=== PATIENT | male | born 1995 | race Caucasian/White ===

== ENCOUNTER 2017-07-07 10:04 | Inpatient (IN) | payer BC, OTHER ==
[~2017-07-07] VITALS: Ht 177.8 cm; Wt 75.3 kg
[2017-07-07 12:00] VITALS: BP 119/66
--- NOTE | 2017-07-07 12:00 | NUR ---
Admission Note VS: BP: 119/66 HR: 88, SpO2: 99% RA, RR: 14, Temp: 97.8 Pain: 4/10 Body aches Height:5'10" Weight: 166LB Allergies: NKA Pt is a 22 y/o male admitted to [facility] on 07/07/17 at 1150. Pt has been admitted for Heroin, Meth and Xanax dependence under the care of Dr. Arnold. Pt denies suicidal and homicidal ideations at this time. Pt denies Chest Pain and SOB. Pt did not bring any medications with him , PT reports taking lexapro 20mg. PT reports living on his own at this time. Upon assessment pt's skin integrity is intact. CIWA 5, COWS 6 upon admission for mild nausea, mild anxiety and 4/10 body aches. A/Ox4 and able to answer questions necessary for the admission process. Pt reports relapsing 2 weeks ago.. Pt is Full Code. VS WNL, Regular Diet. Pt reports family hx of substance abuse by both parents. Pt's mother has a history of benzo and alcohol abuse and father has hx of meth and heroin abuse.. Pt reports Hx of seizures, last seizures happened 3 months ago. Pt denies any history of suicide attempts. Breathing is even and unlabored, SpO2 is 99% on RA. Pt ambulates with steady gait. Pt reports BM every one to two days. LBM on 07/04/17. Pt reports smoking a pack of cigarettes daily. Pt denies having a PCP. 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 Dr. Arnold has been notified, pt has not been placed on a taper at this time and his symptoms will be managed by PRN medications. Pt . All needs have been met. Pt has been oriented to the room and the unit. All safety measures in place per hospital policy. Bed in lowest position, side rails up x2 and padded, call-light within reach. Will continue to monitor. Substance Abuse: Xanax: 6mg orally daily for 2 weeks. Last use: 07/06/17 6mg at 2200 Meth: smokes 1/4g daily for 2 weeks. Last use: 07/05/17 1/4g at night Heroin: 2g IV daily for 2 weeks. Last use: 07/06/17 2g at 2200
[2017-07-07 14:13] LABS: *AMPHETAMINE, URINE NEGATIVE (NEGATIVE); *BARBITURATE, URINE POSITIVE (NEGATIVE); *CANNABINOID, URINE POSITIVE (NEGATIVE); *COCCAINE, URINE NEGATIVE (NEGATIVE); *OPIATE, URINE POSITIVE (NEGATIVE); *PHENCYCLIDINE SCREEN,URINE NEGATIVE (NEGATIVE)
[2017-07-07] MEDS ORDERED: LORAZEPAM 2 MG/1 ML VIAL IM PRN (14:15)
[2017-07-07] MEDS ORDERED: MAG HYDROX/AL HYDROX/SIMETH 30 ML LIQUID UDC PO PRN (14:15)
[2017-07-07] MEDS ORDERED: LOPERAMIDE HCL 2 MG CAPSULE PO PRN ×2 (14:15)
[2017-07-07] MEDS ORDERED: BUPRENORPHINE HCL 2 MG TAB.SUBL SL PRN (14:15)
[2017-07-07] MEDS ORDERED: MIRALAX 17 GM POWD.PACK PO PRN (14:15)
[2017-07-07] MEDS ORDERED: DICYCLOMINE HCL 20 MG TABLET PO PRN (14:15)
[2017-07-07] MEDS ORDERED: IBUPROFEN 600 MG TABLET PO PRN (14:15)
[2017-07-07] MEDS ORDERED: LORAZEPAM 1 MG TABLET PO PRN ×2 (14:15)
[2017-07-07] MEDS ORDERED: ONDANSETRON 4 MG/2 ML VIAL IM PRN (14:15)
[2017-07-07] MEDS: LORAZEPAM 1 MG TABLET PO SCH ×3 (14:30→22:11)
[2017-07-07] MEDS: BUPRENORPHINE HCL 2 MG TAB.SUBL SL SCH ×3 (14:30→22:12)
[2017-07-07 16:00] VITALS: BP 114/64
--- NOTE | 2017-07-07 18:56 | NUR ---
End of Shift Endorsement given to nightshift nurse. Pt has been placed on a 5 day Ativan and 5 day Subutex taper. Both tapers have been initiated at 1700. PT has not received any PRN medications at this time. Pt severely withdrawing AEB COWS 14, CIWA 11, Dr. Arnold is aware. Intake: 796ml, Void x2, BM x0. Pt is a 22 y/o male admitted to [facility] on 07/07/17 at 1150. Pt has been admitted for Heroin, Meth and Xanax dependence under the care of Dr. Arnold. Pt denies suicidal and homicidal ideations at this time. Pt denies Chest Pain and SOB. Pt did not bring any medications with him , PT reports taking lexapro 20mg. PT reports living on his own at this time. Upon assessment pt's skin integrity is intact. CIWA 5, COWS 6 upon admission for mild nausea, mild anxiety and 4/10 body aches. A/Ox4 and able to answer questions necessary for the admission process. Pt reports relapsing 2 weeks ago.. Pt is Full Code. VS WNL, Regular Diet. Pt reports family hx of substance abuse by both parents. Pt's mother has a history of benzo and alcohol abuse and father has hx of meth and heroin abuse.. Pt reports Hx of seizures, last seizures happened 3 months ago. Pt denies any history of suicide attempts. Breathing is even and unlabored, SpO2 is 99% on RA. Pt ambulates with steady gait. Pt reports BM every one to two days. LBM on 07/04/17. Pt reports smoking a pack of cigarettes daily. Pt denies having a PCP. 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 Dr. Arnold has been notified, pt has not been placed on a taper at this time and his symptoms will be managed by PRN medications. Pt . All needs have been met. Pt has been oriented to the room and the unit. All safety measures in place per hospital policy. Bed in lowest position, side rails up x2 and padded, call-light within reach. Will continue to monitor. Substance Abuse: Xanax: 6mg orally daily for 2 weeks. Last use: 07/06/17 6mg at 2200 Meth: smokes 1/4g daily for 2 weeks. Last use: 07/05/17 1/4g at night Heroin: 2g IV daily for 2 weeks. Last use: 07/06/17 2g at 2200
[2017-07-07] MEDS ORDERED: BUPRENORPHINE HCL 2 MG TAB.SUBL SL ONE (19:00)
[2017-07-07] MEDS ORDERED: LORAZEPAM 1 MG TABLET PO ONE (19:00)
--- NOTE | 2017-07-07 19:20 | NUR ---
Start of Shift Notes Received a 22 y/o male admitted on 07/07/17 Heroin, Meth and Xanax dependence. Px is Full Code, Regular Diet. Px reports Hx of seizures, last seizures happened 3 months ago. Px denies any history of suicide attempts. During the rounds at 1920, px complained of body aches 6/10, nausea without emesis, and reported anxiety on moderate side. All safety measures in place per hospital policy. Bed in lowest position, side rails up x2 and padded, call-light within reach. We'll continue to monitor.
[2017-07-07] MEDS: ONDANSETRON ODT 4 MG TAB.RAPDIS SL PRN (19:45)
--- NOTE | 2017-07-07 19:45 | NUR ---
PRN Zofran Px complained of nausea without emesis, Zofran 4 mg/tab, 1 tab given SL as PRN med. We'll continue to monitor.
[2017-07-07 20:00] VITALS: BP 116/64
--- NOTE | 2017-07-07 20:15 | NUR ---
Reassessment of nausea Px verbalized that his nausea is gone. Zofran is effective. We'll continue to monitor.
[2017-07-07] MEDS: METHOCARBAMOL 750 MG TABLET PO PRN (22:10)
[2017-07-07] MEDS: GABAPENTIN 300 MG CAPSULE PO SCH (22:11)
[2017-07-07] MEDS: CLONIDINE HCL 0.1 MG TABLET PO PRN (22:11)
--- NOTE | 2017-07-07 22:11 | NUR ---
PRN Robaxin and Clonidine Px complained of generalized pain of 6/10 and moderate anxiety. Robaxin 750 mg/tab, 1 tab and Clonidine 0.1mg/tab, 1 tab given PO as PRN meds. We'll continue to monitor.
--- NOTE | 2017-07-07 23:11 | NUR ---
Reassessment of pain Px verbalized that the body aches decreased to 4/10 but the anxiety is still there. We'll continue to monitor.
[2017-07-08] VITALS: BP 100/60
[2017-07-08 04:00] VITALS: BP 92/57
--- NOTE | 2017-07-08 04:00 | NUR ---
COWS and CIWA deferred COWS and CIWA deferred due to the px is sleeping, to assess if the px is awake per doctor's order. Respirations are even and unlabored. We'll continue to monitor.
--- NOTE | 2017-07-08 07:17 | NUR ---
End of Shift Notes 22 y/o male admitted on 07/07/17 Heroin, Meth and Xanax dependence. Px is Full Code, Regular Diet. Px reports Hx of seizures, last seizures happened 3 months ago. Px denies any history of suicide attempts. During the shift, px complained of body aches 6/10, nausea without emesis, and reported anxiety on moderate side. Zofran 4 mg/tab, 1 tab given SL, Robaxin 750 mg/tab, 1 tab and Clonidine 0.1mg/tab, 1 tab given PO as PRN meds. Oral intake of 1,400 ml, voided x2, no BM. Slept for 4 hrs. All safety measures in place per hospital policy. Bed in lowest position, side rails up x2 and padded, call-light within reach. We'll continue to monitor.
--- NOTE | 2017-07-08 07:30 | NUR ---
START OF SHIFT Pt is a 22 y/o male admitted on 07/07/17 for benzo, opiate, and meth dependence. Pt is full code, NKA, regular diet, and fall/seizure precautions. Pt reports hx of withdrawal related seizures. Pt reports PMH of anxiety and depression. Pt started a 5 day Ativan and 5 day Subutex taper on 07/07/17, tolerating well. Pt was administered PRN Clonidine, Zofran, and Robaxin during security shift manager. Pt slept 4 hours. Last COW 5 CIWA 6 during security shift manager. Upon assessment pt presents with anxiety, intermittent nausea, body aches 3/10, sweats, runny nose, and chills. Respirations 16, even and unlabored. Denies V/D. Denies chest pain or SOB. Medications due. Safety measures in place. Call light within reach. Will continue to monitor.
[2017-07-08 08:00] VITALS: BP_SYST 84; BP_SYST 94; BP_DIAS 44; BP_DIAS 64
[2017-07-08] MEDS: BUPRENORPHINE HCL 2 MG TAB.SUBL SL SCH ×3 (08:35→20:34)
[2017-07-08] MEDS: GABAPENTIN 300 MG CAPSULE PO SCH (08:35)
[2017-07-08] MEDS: ESCITALOPRAM OXALATE 10 MG TABLET PO SCH (08:36)
[2017-07-08] MEDS: METHOCARBAMOL 750 MG TABLET PO PRN ×2 (08:36→15:08)
[2017-07-08] MEDS: ONDANSETRON ODT 4 MG TAB.RAPDIS SL PRN ×2 (08:36→15:07)
[2017-07-08] MEDS: LORAZEPAM 1 MG TABLET PO SCH ×3 (08:36→20:33)
--- NOTE | 2017-07-08 08:36 | NUR ---
PRN ZOFRAN AND ROBAXIN ADMINISTRATION Pt reports nausea and complains of body aches 11/22. Safety measures in place. Call light within reach. Will continue to monitor.
[2017-07-08] MEDS ORDERED: TUBERCULIN,PURIF.PROT.DERIV. 5 TU/0.1 ML TEST ID ONE (09:00)
--- NOTE | 2017-07-08 09:06 | NUR ---
PRN LEONCIO REASSESSMENT Pt reports that nausea improved. No episodes of vomiting. Safety measures in place. Call light within reach. Will continue to monitor.
--- NOTE | 2017-07-08 09:36 | NUR ---
CAMELIA ORDONEZ REASSESSMENT Pt is laying in bed "taking a nap." Pt reports that body aches ceased . Safety measures in place. Call light within reach. Will continue to monitor.
[2017-07-08 12:00] VITALS: BP 127/73
--- NOTE | 2017-07-08 12:00 | NUR ---
CIWA/COW deferred Pt is laying in bed with eyes closed, to be assessed when pt is fully awake per orders. Respirations 16, even and unlabored. Safety measures in place. Call light within reach. Will continue to monitor.
[2017-07-08] MEDS ORDERED: GABA600T2 PO (13:37)
[2017-07-08] MEDS ORDERED: ESCI20TA PO (13:37)
[2017-07-08] MEDS ORDERED: QUET100T PO (13:37)
[2017-07-08] MEDS: CLONIDINE HCL 0.1 MG TABLET PO PRN (15:07)
--- NOTE | 2017-07-08 15:07 | NUR ---
PRN CLONIDINE, ZOFRAN, AND ROBAXIN ADMINISTRATION Pt presents with anxiety, irritability, sweats, and chills Pt also complains of nausea and body aches 12/23. BP 127/67. Safety measures in place. Call light within reach. Will continue to monitor.
--- NOTE | 2017-07-08 15:37 | NUR ---
PRN ZOFRAN REASSESSMENT Pt reports improvement in nausea, reports it is intermittent. Safety measures in place. Call light within reach. Will continue to monitor.
[2017-07-08 16:00] VITALS: BP 98/45
--- NOTE | 2017-07-08 16:07 | NUR ---
PRN CLONIDINE AND ROBAXIN REASSESSMENT Pt verbalizes improvement in chills, sweats, anxiety, and irritability. Body aches improved, 2/10. Safety measures in place. Call light within reach. Will continue to monitor.
--- NOTE | 2017-07-08 19:24 | NUR ---
END OF SHIFT Pt is a 22 y/o male admitted on 07/07/17 for benzo, opiate, and meth dependence. Pt is full code, NKA, regular diet, and fall/seizure precautions. Pt reports hx of withdrawal related seizures. Pt reports PMH of anxiety and depression. Pt started a 5 day Ativan and 5 day Subutex taper on 07/07/17, tolerating well. Pt presented with anxiety, irritability, intermittent nausea, body aches 3/10, sweats, runny nose, and chills. Scheduled medications and PRN Zofran x 2, Robaxin x 2 ([id number] and [id number]) and Clonidine, effective in S/S of withdrawal AEB COW 5 CIWA 5 lowered to COW 5 CIWA 4 during shift and pt verbalized overall improvement in S/S. Pt ate all his meals. Pt participated did not participate in most groups/activities. Intake 2175 ml, void x 3, stool x 0. Safety measures in place. Call light within reach. Pts needs have been met. Endorsed to night warehouse manager nurse.
[2017-07-08 20:00] VITALS: BP 137/65
--- NOTE | 2017-07-08 20:00 | NUR ---
START OF SHIFT NOTE RECEIVED REPORT FROM DAY SHIFT NURSE. PATIENT IS A 22 YEAR OLD MALE ADMITTED FOR BENZO/OPIATE DEPENDENCE. PATIENT IS ON 2ND DAY OF HIS 5 DAY SUBUTEX. PATIENT REPORTS PMH OF ANXIETY , DEPRESSION AND SEIZURE R/T W/D. SKIN INTACT. PATIENT WAS GIVEN PRN ROBAXIN X 2, ZOFRAN X 2 AND CLONIDINE. LAST COWS 6 AND CIWA 4. RECEIVED PATIENT ALERT AND ORIENTED X 4. RESPIRATION EVEN AND UNLABORED. PATIENT REPORTS ANXIETY, HOT AND COLD SWEATS, INTERMITTENT NAUSEA BUT NOT AT THIS TIME, BODY ACHES 3/10 AND NOTED WITH FINE TREMORS. ON FALL/SEIZURE PRECAUTION. SAFETY MEASURES IN PLACE. CALL LIGHT IN REACH. WILL CONTINUE TO MONITOR.
[2017-07-08] MEDS: QUETIAPINE FUMARATE 100 MG TABLET PO SCH (20:34)
[2017-07-08] MEDS ORDERED: GABAPENTIN 300 MG CAPSULE PO SCH (21:00)
[2017-07-08 22:32] LABS: BASOPHILS # (AUTO) 0.1 K/uL (0.0-8.0); BASOPHILS % (AUTO) 0.9 % (0.0-2.0); EOSINOPHILS # (AUTO) 0.2 K/uL (0.0-0.7); EOSINOPHILS % (AUTO) 3.7 % (0.0-7.0); HEMOGLOBIN 12.4 G/DL (14.0-18.0); LYMPHOCYTES % (AUTO) 44.5 % (20.5-51.5); MEAN CORPUSCULAR HEMOGLOBIN 31.3 UUG (27.0-31.0); MEAN CORPUSCULAR HGB CONC 34 g/dL (32.0-37.0); MEAN CORPUSCULAR VOLUME 91.1 FL (82.0-92.0); MONOCYTES # (AUTO) 0.7 K/UL (0.1-1.30); MONOCYTES % (AUTO) 10.9 % (0.0-11.0); NEUTROPHILS # (AUTO) 2.7 K/UL (1.8-8.9); PLATELET COUNT (AUTO) 253 K/UL (150-450); RED BLOOD CELL COUNT(AUTO) 3.95 MIL/UL (4.7-6.1); WHITE BLOOD COUNT (AUTO) 6.7 K/UL (4.0-11.2)
[2017-07-08 22:47] LABS: ALANINE AMINOTRANSFERASE 60 U/L (16-63); ALKALINE PHOSPHATASE 83 U/L (50-136); ASPARTATE AMINOTRANSFERASE 26 U/L (15-37); BILIRUBIN,TOTAL 0.2 mg/dL (0.2-1.0); CARBON DIOXIDE 30 mmol/L (21-32); CHLORIDE 103 mmol/L (98-107); CREATININE 0.8 mg/dL (0.6-1.3); GLUCOSE 122 mg/dL (74-106); POTASSIUM 3.8 mmol/L (3.5-5.1); TOTAL PROTEIN, SERUM 6.7 g/dL (6.4-8.2); UREA NITROGEN, BLOOD 10 mg/dL (7-18)
[2017-07-08 22:57] LABS: ETHANOL < 3 MG/DL (0-0)
[2017-07-09] VITALS: BP 115/72
--- NOTE | 2017-07-09 | NUR ---
COWS AND CIWA DEFERRED PATIENT SLEEPING COMFORTABLY. RESPIRATION EVEN AND UNLABORED. SAFETY MEASURES IN PLACE. CALL LIGHT IN REACH. WILL CONTINUE TO MONITOR.
--- NOTE | 2017-07-09 | NUR ---
BLAYNE DEFERRED PATIENT SLEEPING. REFUSED TO WOKEN UP FOR VS. RESPIRATION EVEN AND UNLABORED. SAFETY MEASURES IN PLACE. CALL LIGHT IN REACH. WILL CONTINUE TO MONITOR Addendum: 07/09/17 at 0701 by ARMANDO LR LVN ERROR: THIS CHARTING IS FOR ANOTHER PATIENT
[2017-07-09 04:00] VITALS: BP 99/55
--- NOTE | 2017-07-09 04:00 | NUR ---
COWS AND CIWA DEFERRED PATIENT SLEEPING COMFORTABLY. RESPIRATION EVEN AND UNLABORED. SAFETY MEASURES IN PLACE. CALL LIGHT IN REACH. WILL CONTINUE TO MONITOR.
--- NOTE | 2017-07-09 07:22 | NUR ---
END OF SHIFT PATIENT COMPLIANT WITH MEDICATION AND TREATMENT PLAN. PATIENT DID NOT REQUIRE ANY PRN MEDICATION . PATIENT SLEPT 7 HOURS. FLUID INTAKE 1,047 ML . VOIDED X 2 AND BM X 1. LAST COWS 9 AND CIWA 6. PATIENT STATES MEDICATIONS ARE EFFECTIVE IN CONTROLLING HIS WITHDRAWAL SYMPTOMS. PATIENT EATING AND DRINKING WELL. ON FALL/SEIZURE PRECAUTION. SAFETY MEASURES IN PLACE. CALL LIGHT IN REACH. WILL CONTINUE TO MONITOR
[2017-07-09 08:00] VITALS: BP 101/60
--- NOTE | 2017-07-09 08:15 | NUR ---
START OF SHIFT: RECEIVED PT A/O X 4. HE PRESENTS WITH BLUNTED AFFECT AND DEPRESSED MOOD. HE REPORTS BODY ACHES,NIGHT SWEATS,CHILLS ANXIETY AND RESTLESSNESS. COWS 6 CIWA 3. ENCOURAGED INCREASED FLUIDS TO ASSIST IN FACILITATING DETOX PROCESS. ENCOURAGED GROUP ATTENDANCE TO IMPROVE COPING SKILLS AND PREVENT RELAPSE. WILL CONTINUE TO MONITOR AND OFFER SUPPORT.
[2017-07-09] MEDS: ESCITALOPRAM OXALATE 10 MG TABLET PO SCH (08:33)
[2017-07-09] MEDS: LORAZEPAM 1 MG TABLET PO SCH ×3 (08:34→20:20)
[2017-07-09] MEDS ORDERED: GABAPENTIN 300 MG CAPSULE PO SCH (09:00)
[2017-07-09] MEDS ORDERED: BUPRENORPHINE HCL 2 MG TAB.SUBL SL SCH (09:00)
--- NOTE | 2017-07-09 10:36 | NUR ---
Therapist prompted client about group times. Client stated he will try to attend the afternoon group so he can rest longer.
[2017-07-09] MEDS: METHOCARBAMOL 750 MG TABLET PO PRN ×2 (11:44→20:21)
[2017-07-09] MEDS: HYDROXYZINE PAMOATE 25 MG CAPSULE PO PRN ×2 (11:45→18:07)
[2017-07-09] MEDS: CLONIDINE HCL 0.1 MG TABLET PO PRN (11:45)
--- NOTE | 2017-07-09 11:50 | NUR ---
PRN VISTARIL,CLONIDINE AND ROBAXIN GIVEN FOR REPORTED ANXIETY,CHILLS AND MUSCLE ACHES.
[2017-07-09 12:00] VITALS: BP 121/79
--- NOTE | 2017-07-09 12:50 | NUR ---
PT REPORTS PRN MEDS WERE EFFECTIVE. WILL CONTINUE TO MONITOR.
[2017-07-09] MEDS: GABAPENTIN 400 MG CAPSULE PO SCH ×2 (14:54→20:20)
[2017-07-09] MEDS: BUPRENORPHINE HCL 2 MG TAB.SUBL SL SCH ×2 (14:54→20:21)
[2017-07-09 16:00] VITALS: BP 110/66
--- NOTE | 2017-07-09 19:08 | NUR ---
END OF SHIFT: PT CONTINUES ON SUBUTEX/ATIVAN TAPER. LAST COWS 4 CIWA 2. PRN VISTARIL,CLONIDINE AND ROBAXIN GIVEN TO ASSIST IN MANAGING S/S OF W/D. PT STATES THEY WERE EFFECTIVE. HE ISOLATED IN ROOM AND STAYED IN BED MOST OF DAY AND REFUSED TO GO TO GROUPS. HE STATES HE WILL GO TOMORROW WHEN HE FEELS BETTER.. WILL PASS SHIFT REPORT TO ONCOMING [facility] NURSE.
[2017-07-09 20:00] VITALS: BP 132/73
--- NOTE | 2017-07-09 20:00 | NUR ---
Start of Shift Note: Report received from day shift nurse. Pt is a 22M admitted on 07/07/2017 for medically-supervised withdrawal from benzodiazepines, opiates, and amphetamines. Pt reports using Xanax 6mg, heroin IV 2g, and 0.25g methamphetamine daily for two weeks. Pt continues on Ativan and Subutex tapers. Pt received with last COWS=4/CIWA=2, and PRN's Vistaril x2, Catapres, and Robaxin were given during day shift. Pt reports NKDA/NKFA. Pt is a full code. Pt is on a regular diet. PMHx: anxiety, depression. Pt received in room and reports anxiety, tremor, and chills; pt noted to be diaphoretic with 5mm pupils. Bed is in low position and locked, side rails up x2, call light within reach. Will continue to monitor.
[2017-07-09] MEDS: QUETIAPINE FUMARATE 100 MG TABLET PO SCH (20:20)
[2017-07-09] MEDS: CLONIDINE HCL 0.1 MG TABLET PO SCH (20:21)
--- NOTE | 2017-07-09 20:21 | NUR ---
PRN Robaxin: Patient complains of myalgia in bilateral legs. Administered PRN Robaxin as ordered. Will reassess in one hour.
--- NOTE | 2017-07-09 21:25 | NUR ---
PRN Robaxin Reassessment: Patient denies myalgia at this time. PRN Robaxin effective. Will continue to monitor.
[2017-07-10] VITALS: BP 104/57
--- NOTE | 2017-07-10 | NUR ---
COWS/CIWA Deferred: Ordered 00:00 COWS and CIWA assessments are deferred for sleep. VSS. All safety precautions are in place. Will continue to monitor. Addendum: 07/10/17 at 0131 by GARCIA DAVALOS RN Amended: Links added.
[2017-07-10 04:00] VITALS: BP 92/51
--- NOTE | 2017-07-10 04:00 | NUR ---
COWS and CIWA Deferred: COWS and CIWA are deferred for sleep. VSS. All safety precautions are in place. Will continue to monitor. Addendum: 07/10/17 at 0427 by GARCIA DAVALOS RN Amended: Links added.
[2017-07-10 07:07] LABS: HEPATITIS B SURFACE AG Negative (Negative)
--- NOTE | 2017-07-10 07:10 | NUR ---
End of Shift Note: Pt is a 22 y/o male admitted to [facility] on 07/07/2017 for medically-supervised withdrawal from benzodiazepines, opiates, and amphetamines. Pt reported a PMHx of anxiety and depression. Pt reports NKDA/NKFA, is a full code, and is on a regular diet. Pt reported using 6mg Xanax, 2g IV heroin, and 0.25g methamphetamine daily for two weeks, and was placed on Ativan and Subutex tapers. Scheduled medication regime effectively managed s/s of withdrawal this shift, in addition to PRN Robaxin for myalgia. Last COWS=9/CIWA=7 at 20:00 before taper medications were administered. V/S stable throughout shift. Total fluid intake this shift: 800 ml; output: urine x 4 and BM x 1. Pt is currently in bed and slept 7 hours this shift. All needs have been attended and met. Pt endorsed to day shift nurse.
--- NOTE | 2017-07-10 07:50 | NUR ---
START OF SHIFT Rcvd endorsement from ongoing nurse, client is in bed, he is a/o x 4, he presents with anxious mood, flat affect, fine tremors, and clammy skin. He reports chills, body aches, abdominal cramps, and decreased appetite. Encouraged client to attend group therapy for skills to maintain sober. Encouraged client to increase PO fluid as tolerated to facilitate detox. Client is a 22 y/o male, admitted to [facility] for withdrawal from alprazolam and heroin. Client is on 5 day Ativan/Subutex taper (day 4), tolerating well . Last CIWA 7/COWS 9 @ 1999. PRN Robaxin 750mg PO for muscle pain, noted effective. Client slept 7 hrs. He reports hx of withdrawal-induced seizures, Client reports of NKA, he is full code, Regular diet. Client side rails x 2 up/padded for seizure precautions. Call light within reach.
[2017-07-10 08:55] VITALS: BP 110/71
[2017-07-10] MEDS ORDERED: BACLOFEN 10 MG TABLET PO SCH (09:00)
[2017-07-10] MEDS ORDERED: LORAZEPAM 1 MG TABLET PO SCH (09:00)
[2017-07-10] MEDS: ESCITALOPRAM OXALATE 10 MG TABLET PO SCH (09:01)
[2017-07-10] MEDS: BUPRENORPHINE HCL 2 MG TAB.SUBL SL SCH ×4 (09:02→20:38)
[2017-07-10] MEDS: GABAPENTIN 400 MG CAPSULE PO SCH ×3 (09:02→20:38)
[2017-07-10] MEDS: CLONIDINE HCL 0.1 MG TABLET PO SCH ×3 (09:02→20:37)
[2017-07-10] MEDS: METHOCARBAMOL 750 MG TABLET PO PRN (09:03)
--- NOTE | 2017-07-10 09:03 | NUR ---
PRN Robaxin 750mg PO administered for generalized muscle pain 02/22. Call light within reach. Will continue to monitor.
--- NOTE | 2017-07-10 10:03 | NUR ---
Reassessment PRN Robaxin 750mg PO, client reports relief from generalized muscle pain 210, but tolerable. Call light within reach.
[2017-07-10 12:55] VITALS: BP 141/83
[2017-07-10] MEDS: HYDROXYZINE PAMOATE 25 MG CAPSULE PO PRN (13:06)
--- NOTE | 2017-07-10 13:06 | NUR ---
PRN Bentyl 20mg PO, Vistaril 25mg PO, and Clonidine 0.1mg PO administered for abdominal spasms, anxiety, irritability respectively. Client noted with inability to stay still, pacing room, increased P 90. Call light within reach.
[2017-07-10] MEDS: CLONIDINE HCL 0.1 MG TABLET PO PRN (13:07)
--- NOTE | 2017-07-10 14:06 | NUR ---
Reassessment PRN Bentyl 20mg PO, Vistaril 25mg PO, and Clonidine 0.1mg PO noted effective, client reports relief from abdominal spasms, decreased level of anxiety, he appears less irritable, [facility]
[2017-07-10] MEDS: BACLOFEN 20 MG TABLET PO SCH ×2 (14:09→20:37)
[2017-07-10] MEDS ORDERED: BUPRENORPHINE HCL 2 MG TAB.SUBL SL SCH (15:00)
[2017-07-10] MEDS: LORAZEPAM 1 MG TABLET PO SCH ×2 (16:36→20:38)
[2017-07-10 16:38] VITALS: BP 109/62
--- NOTE | 2017-07-10 19:10 | NUR ---
Start of Shift Patient Received. Patient is in activities room participating in group activities. Patient is a 22 year old male that was admitted on 07/07/17 for Opiate and Benzo Dependence under the care of Dr. Arnold. Patient continues on Subutex and Ativan tapers. Patient verbalizes no known allergies, wishes to be full code, following a regular diet, placed on fall and seizure precautions, with skin noted intact. Past medical history of Anxiety, Depression, and history of withdrawal induced seizures. Per endorsement, patient was given PRN Bentyl, Clonidine, and Robaxin with medications noted to be effective. Last noted COWS 7 and CIWA 6. All needs attended to promptly. Will continue plan of care as ordered.
--- NOTE | 2017-07-10 19:14 | NUR ---
END OF SHIFT Endorsed client to incoming nurse, Client is a 22 y/o male, he is a/o x 4, he was admitted to [facility] for withdrawal from alprazolam and heroin. Client is on modified 6 day Ativan/Subutex taper (day 4), tolerating well. Last CIWA 6/ 7 @ 1600. PRN Robaxin 750mg PO for generalized muscle pain 02/22, PRN Bentyl 20mg PO, Vistaril 25mg PO, and Clonidine 0.1mg PO for abdominal spasms, anxiety, and irritability respectively, noted effective. Client is compliant with group therapy. Adequate PO fluid intake 2600mL, void x 5, stool x 1. He reports hx of withdrawal-induced seizures, Client reports NKA, he is full code, Regular diet. Client side rails x 2 up/padded for seizure precautions. Call light within reach.
[2017-07-10 20:35] VITALS: BP 114/60
[2017-07-10] MEDS: QUETIAPINE FUMARATE 100 MG TABLET PO SCH (20:38)
[2017-07-11 00:05] VITALS: BP 115/59
[2017-07-11 04:12] VITALS: BP 98/52
--- NOTE | 2017-07-11 07:22 | NUR ---
End of Shift Patient is in bed sleeping. Breathing even and non labored. Patient is a 22 year old male that was admitted on 07/07/17 for Opiate and Benzo Dependence under the care of Dr. Arnold. Patient continues on Subutex and Ativan tapers. No known allergies, Full Code, Regular Diet, placed on fall and seizure precautions, with skin noted intact. Past medical history of Anxiety, Depression, and history of withdrawal induced seizures. No PRN medications administered. Last noted COWS 7 and CIWA 6. All needs attended to promptly. Will endorse to continue plan of care as ordered.
--- NOTE | 2017-07-11 07:38 | NUR ---
START OF SHIFT Rcvd endorsement from ongoing nurse, client is in room, he is a/o x 4, he presents with depressed mood, flat affect. He reports restless legs, body aches, abdominal cramps, and chills. Encouraged client to attend group therapy for skills to maintain sober. Encouraged client to increase PO fluid as tolerated to facilitate detox. Client is a 22 y/o male, admitted to [facility] for withdrawal from alprazolam and heroin. Client is on modified 6 day Ativan/Subutex taper (day 5), tolerating well. Last CIWA 6/COWS 7 @ 1999. Client had an uneventful night, he slept 7 hrs. He reports hx of withdrawal-induced seizures, Client reports of NKA, he is full code, Regular diet. Client side rails x 2 up/padded for seizure precautions. Call light within reach.
[2017-07-11] MEDS: BUPRENORPHINE HCL 2 MG TAB.SUBL SL SCH ×3 (08:41→20:37)
[2017-07-11] MEDS: CLONIDINE HCL 0.1 MG TABLET PO SCH ×3 (08:42→20:36)
[2017-07-11] MEDS: ESCITALOPRAM OXALATE 10 MG TABLET PO SCH (08:42)
[2017-07-11] MEDS: BACLOFEN 20 MG TABLET PO SCH ×3 (08:42→20:36)
[2017-07-11] MEDS: GABAPENTIN 400 MG CAPSULE PO SCH ×3 (08:43→20:36)
[2017-07-11 08:45] VITALS: BP 110/73
[2017-07-11] MEDS ORDERED: BUPRENORPHINE HCL 2 MG TAB.SUBL SL SCH (09:00)
[2017-07-11] MEDS ORDERED: LORAZEPAM 1 MG TABLET PO SCH ×2 (09:00)
[2017-07-11 12:31] VITALS: BP 108/56
[2017-07-11] MEDS: METHOCARBAMOL 750 MG TABLET PO PRN (13:23)
[2017-07-11] MEDS: HYDROXYZINE PAMOATE 25 MG CAPSULE PO PRN (13:24)
--- NOTE | 2017-07-11 13:24 | NUR ---
PRN Vistaril 25mg PO, and Clonidine 0.1mg PO administered for anxiety, irritability respectively. Call light within reach.
[2017-07-11] MEDS: LORAZEPAM 1 MG TABLET PO SCH ×2 (14:12→20:36)
--- NOTE | 2017-07-11 14:24 | NUR ---
Reassessment PRN Vistaril 25mg PO, and Clonidine 0.1mg PO effective, client appears less anxious, he is able to join his peers and go to the patio.
[2017-07-11 16:57] VITALS: BP 127/68
--- NOTE | 2017-07-11 19:05 | NUR ---
Start of Shift Patient is in activities room participating in group activities. Patient is a 22 year old male that was admitted on 07/07/17 for Opiate and Benzo Dependence under the care of Dr. Arnold. Patient continues on both Subutex and Ativan tapers. No known allergies, Full Code, Regular Diet, placed on fall and seizure precautions, with skin noted intact. Past medical history of Anxiety, Depression, and history of withdrawal induced seizures. Per endorsement, Patient was given PRN Vistaril and Robaxin with medications noted to be effective. Last noted COWS 4 and CIWA 4. All needs attended to promptly. Will continue plan of care as ordered.
--- NOTE | 2017-07-11 19:18 | NUR ---
END OF SHIFT Endorsed client to incoming nurse, Client is a 22 y/o male, he is a/o x 4, he was admitted to [facility] for withdrawal from alprazolam and heroin. Client is on modified 6 day Ativan/Subutex taper (day 5), tolerating well. Last CIWA 4/COWS 4 @ 1600. PRN Robaxin 750mg PO for muscle pain, Vistaril 25mg PO for anxiety, noted effective. Client is compliant with group therapy. Adequate PO fluid intake 3800mL, void x 6, stool x 1. He reports hx of withdrawal-induced seizures, Client reports NKA, he is full code, Regular diet. Client side rails x 2 up/padded for seizure precautions. Call light within reach.
[2017-07-11 20:05] VITALS: BP 118/77
[2017-07-11] MEDS: QUETIAPINE FUMARATE 100 MG TABLET PO SCH (20:36)
[2017-07-12 00:07] VITALS: BP 109/78
[2017-07-12 04:26] VITALS: BP 102/66
--- NOTE | 2017-07-12 07:07 | NUR ---
End of Shift Patient is in bed sleeping. Breathing even and non labored. Patient is a 22 year old male that was admitted on 07/07/17 for Opiate and Benzo Dependence under the care of Dr. Arnold. Patient continues on both Subutex and Ativan tapers. No known allergies, Full Code, Regular Diet, placed on fall and seizure precautions, with skin noted intact. No PRN Medication. Last noted COWS 3 and CIWA 4. All needs attended to promptly. Will endorse to continue plan of care as ordered.
[2017-07-12 08:00] VITALS: BP 117/62
--- NOTE | 2017-07-12 08:15 | NUR ---
START OF SHIFT: RECEIVED PT A/O X 4. HE PRESENTS WITH BLUNTED AFFECT AND DEPRESSED MOOD. HE REPORTS BODY ACHES,ANXIETY AND RESTLESSNESS. COWS 3 CIWA 1. ENCOURAGED INCREASED FLUIDS TO ASSIST IN FACILITATING DETOX PROCESS. ENCOURAGED GROUP ATTENDANCE TO IMPROVE COPING SKILLS AND PREVENT RELAPSE. WILL CONTINUE TO MONITOR AND OFFER SUPPORT.
[2017-07-12] MEDS ORDERED: LORAZEPAM 1 MG TABLET PO SCH (09:00)
[2017-07-12] MEDS ORDERED: BUPRENORPHINE HCL 2 MG TAB.SUBL SL SCH (09:00)
[2017-07-12] MEDS: ESCITALOPRAM OXALATE 10 MG TABLET PO SCH (09:02)
[2017-07-12] MEDS: CLONIDINE HCL 0.1 MG TABLET PO SCH ×3 (09:03→20:21)
[2017-07-12] MEDS: GABAPENTIN 400 MG CAPSULE PO SCH ×3 (09:03→20:20)
[2017-07-12] MEDS: BACLOFEN 20 MG TABLET PO SCH ×3 (09:03→20:20)
[2017-07-12] MEDS: HYDROXYZINE PAMOATE 25 MG CAPSULE PO PRN ×2 (11:56→18:42)
[2017-07-12] MEDS: METHOCARBAMOL 750 MG TABLET PO PRN ×2 (11:56→18:42)
[2017-07-12 12:00] VITALS: BP 129/68
--- NOTE | 2017-07-12 12:00 | NUR ---
PRN VISTARIL AND PRN ROBAXIN ADMINISTERED FRO REPORTED MUSCLE ACHES AND ANXIETY. WILL MONITOR EFFECTIVENESS OF PRNS.
--- NOTE | 2017-07-12 13:00 | NUR ---
PRNS WERE EFFECTIVE. PT STATES HE FEELS BETTER.
[2017-07-12] MEDS ORDERED: GABA-536 PO (14:04)
[2017-07-12] MEDS ORDERED: METH-406 PO (14:04)
[2017-07-12] MEDS ORDERED: BACL20TA PO (14:04)
[2017-07-12] MEDS ORDERED: CLON0.1T14 PO ×2 (14:04)
[2017-07-12] MEDS ORDERED: ESCI10TA PO (14:04)
[2017-07-12] MEDS ORDERED: ONDA4TAB11 SL (14:04)
[2017-07-12] MEDS ORDERED: HYDR-3895 PO (14:04)
[2017-07-12] MEDS ORDERED: DICY20TA28 PO (14:04)
[2017-07-12 16:00] VITALS: BP 129/68
--- NOTE | 2017-07-12 18:40 | NUR ---
PRN VISTARIL AND ROBAXIN GIVEN FOR ANXIETY AND MUSCLE ACHES. WILL ENDORSE TO ONCOMING NIGHT NURSE.
--- NOTE | 2017-07-12 19:00 | NUR ---
Start of Shift Patient is in activities room participating in group activities. Patient is a 22 year old male that was admitted on 07/07/17 for Opiate and Benzo Dependence under the care of Dr. Arnold. Patient has completed both Subutex and Ativan tapers. No known allergies, Full Code, Regular Diet, placed on fall and seizure precautions, with skin noted intact. Per endorsement, patient was given PRN Vistaril x2 and Robaxin x2 with both medications noted to be effective. Patient is set for discharge tomorrow 07/13/17. Last noted COWS 2 and CIWA 2. All needs attended to promptly. Will continue plan of care as ordered.
--- NOTE | 2017-07-12 19:15 | NUR ---
END OF SHIFT: PT COMPLETED TAPERS. LAST COWS 2 CIWA 2. PT APPEARS APATHETIC. HE C/O MUSCLE ACHES AND ANXIETY X 2. ROBAXIN AND VISTARIL GIVEN AND EFFECTIVE. WILL ENDORSE REASSESSMENT OF PRNS TO AIR BAG STRIPPER NURSE. DISCHARGE SCHEDULED FOR 07/13. HE IS CONCERNED THAT HE IS NOT GETTING ANYMORE SUBUTEX. WILL PASS SHIFT REPORT TO ONCOMING NIGHT NURSE.
[2017-07-12 20:09] VITALS: BP 123/72
[2017-07-12] MEDS: QUETIAPINE FUMARATE 100 MG TABLET PO SCH (20:20)
[2017-07-13] VITALS: BP 97/57
[2017-07-13 04:00] VITALS: BP 100/62
--- NOTE | 2017-07-13 07:10 | NUR ---
End of Shift Patient is in bed sleeping but easily aroused to verbal stimuli. Breathing even and non labored. Patient is a 22 year old male that was admitted on 07/07/17 for Opiate and Benzo Dependence under the care of Dr. Arnold. Patient has completed both Subutex and Ativan tapers. No known allergies, Full Code, Regular Diet, placed on fall and seizure precautions, with skin noted intact. No PRN medications administered. Patient is set for discharge today 07/13/17. Last noted COWS 2 and CIWA 5. All needs attended to promptly. Will endorse to continue plan of care as ordered.
[2017-07-13 08:00] VITALS: BP 101/63
--- NOTE | 2017-07-13 08:00 | NUR ---
START OF SHIFT: RECEIVED PT A/O X 4. HE C/O MILD BODY ACHES AND MILD ANXIETY. COWS 1 CIWA 1. DISCHARGE PLANNING IN PROGRESS FOR THIS AM. PT STATES HE IS READY TO MOVE FORWARD WITH RECOVERY. WILL CONTINUE TO MONITOR AND OFFER SUPPORT.
[2017-07-13] MEDS: GABAPENTIN 400 MG CAPSULE PO SCH (08:58)
[2017-07-13] MEDS: ESCITALOPRAM OXALATE 10 MG TABLET PO SCH (08:59)
[2017-07-13] MEDS: BACLOFEN 20 MG TABLET PO SCH (08:59)
[2017-07-13 09:00] VITALS: BP 101/63
[2017-07-13] MEDS: CLONIDINE HCL 0.1 MG TABLET PO SCH (09:00)
--- NOTE | 2017-07-13 09:50 | NUR ---
DISCHARGE: PT IS A/O X4. HE DENIES S/I AND H/I. HE STATES HE IS MOTIVATED TO STAY CLEAN AND FEELS ENTHUSIASTIC. BELONGINGS RETURNED. EDUCATED PT ON DISCHARGE INSTRUCTIONS AND MEDICATIONS. REFERRAL AGENT ESCORTED PT TO [facility] WHERE HE WAS TRANSPORTED BY [email or web address] ROLL TRANSPORTATION TO [facility] BY PIECE AT [id number].
== END 2017-07-13 09:45 | disposition other institution (70) | DRG 895 ==
LOC: SRC 10:04
PROVIDERS: ADMIT Internal Medicine; ATTEND Internal Medicine
PROC: HZ2ZZZZ Detoxification Services for Substance Abuse Treatment (ICD-10-PCS; principal; 2017-07-07)
PROC: HZ31ZZZ Individual Counseling for Substance Abuse Treatment, Behavioral (ICD-10-PCS; 2017-07-09)
PROC: HZ41ZZZ Group Counseling for Substance Abuse Treatment, Behavioral (ICD-10-PCS; 2017-07-10)
DX: F13.230 Sedative, hypnotic or anxiolytic dependence with withdrawal, uncomplicated (principal); I15.9 Secondary hypertension, unspecified; F12.90 Cannabis use, unspecified, uncomplicated; F11.23 Opioid dependence with withdrawal; F15.23 Other stimulant dependence with withdrawal; F17.210 Nicotine dependence, cigarettes, uncomplicated; Z59.1 Inadequate housing; F41.9 Anxiety disorder, unspecified; G47.00 Insomnia, unspecified; R73.9 Hyperglycemia, unspecified; Z81.8 Family history of other mental and behavioral disorders; Z81.1 Family history of alcohol abuse and dependence; Z81.3 Family history of other psychoactive substance abuse and dependence; F32.9 Major depressive disorder, single episode, unspecified; Z86.69 Personal history of other diseases of the nervous system and sense organs
CPT/HCPCS: 36415; 70030-TC; 80307; 80345; 80346; 80349; 80361; 83735; 85025; 86592; 86705; 86803; 87340; 87806; A4663; G0480; Q0162